=== PATIENT | male | born 1960 | race Caucasian/White ===

== ENCOUNTER 2018-07-21 18:19 | Emergency (ER) | payer OTHER ==
[~2018-07-21] VITALS: Ht 180.3 cm; Wt 97.7 kg
[~2018-07-21 18:19] MED LIST: ASPI-1213 PO; METO-391 PO; SERT50TA12 PO
[2018-07-21] MEDS ORDERED: AMLO-511 PO (18:57)
[2018-07-21] MEDS ORDERED: RANI150T7 PO (18:57)
[2018-07-21] MEDS ORDERED: HYDR25TA PO (18:57)
[2018-07-21] MEDS ORDERED: FOLI0.4T4 PO (18:57)
[2018-07-21] MEDS ORDERED: BACITRACIN 0.9 GM PACKET OINTMENT TP ONE (19:45)
[2018-07-21] MEDS ORDERED: LIDOCAINE 1% 10 ML VIAL INJ ONE (19:45)
[2018-07-21 21:35] VITALS: BP 119/84
== END 2018-07-21 21:35 | disposition home or self-care (01) ==
LOC: EMS 18:19
DX: S61.212A Laceration without foreign body of right middle finger without damage to nail, initial encounter (principal); S61.214A Laceration without foreign body of right ring finger without damage to nail, initial encounter; I10 Essential (primary) hypertension; F17.210 Nicotine dependence, cigarettes, uncomplicated; F32.9 Major depressive disorder, single episode, unspecified; W45.8XXA Other foreign body or object entering through skin, initial encounter; Y93.89 Activity, other specified; Y92.89 Other specified places as the place of occurrence of the external cause; Y99.8 Other external cause status
CPT/HCPCS: 12002; 73130; 99284; 99406; J3490

== ENCOUNTER 2019-03-28 16:17 | Emergency (ER) | payer OTHER ==
[~2019-03-28] VITALS: Ht 180.3 cm; Wt 95.5 kg
[~2019-03-28 16:17] MED LIST changes: +AMLO-511 PO; -ASPI-1213 PO; +FOLI0.4T14 PO; +HYDR25TA PO; +RANI150T7 PO
[2019-03-28] MEDS ORDERED: HYDROCODONE/ACETAMINOPHEN 5-325 MG TABLET PO ONE (18:00)
[2019-03-28] MEDS ORDERED: BACITRACIN 0.9 GM PACKET OINTMENT TP ONE (19:15)
[2019-03-28 19:32] VITALS: BP 161/99
== END 2019-03-28 20:02 | disposition home or self-care (01) ==
LOC: EMS 16:17
DX: S52.325A Nondisplaced transverse fracture of shaft of left radius, initial encounter for closed fracture (principal); R07.81 Pleurodynia; I10 Essential (primary) hypertension; F32.9 Major depressive disorder, single episode, unspecified; F17.210 Nicotine dependence, cigarettes, uncomplicated; W17.89XA Other fall from one level to another, initial encounter; Y93.89 Activity, other specified; Y92.89 Other specified places as the place of occurrence of the external cause; Y99.8 Other external cause status
CPT/HCPCS: 70486; 71111

== ENCOUNTER 2023-12-30 10:28 | Emergency (ER) | payer MEDICARE, OTHER ==
[~2023-12-30] VITALS: Ht 180.3 cm; Wt 100.0 kg
[~2023-12-30 10:28] MED LIST changes: +AMLO-257 PO; -AMLO-511 PO; -FOLI0.4T14 PO; +FOLI0.4T6 PO; -HYDR25TA PO; +HYDR25TA2 PO; +SERT-158 PO; -SERT50TA12 PO
[2023-12-30 10:32] VITALS: TEMP 97.8
[2023-12-30] MEDS: HYDROGEN PEROXIDE 118 ML SOLUTION TP ONE (13:13)
[2023-12-30] MEDS ORDERED: ALBU18HF12 PO (13:14)
[2023-12-30] MEDS ORDERED: METO50 PO (13:14)
[2023-12-30] MEDS ORDERED: SERT-440 PO (13:14)
[2023-12-30] MEDS ORDERED: FOLI-130 PO (13:14)
[2023-12-30] MEDS ORDERED: AMLO10TA55 PO (13:14)
[2023-12-30] MEDS ORDERED: ATOR20TA65 PO (13:14)
[2023-12-30 13:56] VITALS: BP 133/72; PULSE 88; RESP 18
== END 2023-12-30 14:01 | disposition home or self-care (01) ==
LOC: EMS 10:28
DX: H61.23 Impacted cerumen, bilateral (principal); F32.A Depression, unspecified; I10 Essential (primary) hypertension; F17.210 Nicotine dependence, cigarettes, uncomplicated; F15.90 Other stimulant use, unspecified, uncomplicated; Z98.890 Other specified postprocedural states
CPT/HCPCS: 69209; 99282; Z7502; Z7610